=== PATIENT | male | born 1985 | race Caucasian/White ===

== ENCOUNTER 2018-07-25 08:33 | Day surgery (SDC) | payer OTHER ==
--- NOTE | 2018-07-23 13:14 | HP ---
DATE OF SURGERY: 07/25/2018 ANTICIPATED PROCEDURE: Cholecystectomy. HISTORY OF PRESENT ILLNESS: The patient has upper abdominal pain. Ultrasound positive. Seen and examined. Procedure discussed in detail and wished to proceed. PAST MEDICAL HISTORY: ALLERGIES: SHELLFISH. MEDICATIONS: None. PAST SURGICAL HISTORY: Left elbow. SOCIAL HISTORY: Half pack per day. ETOH occasional. FAMILY HISTORY: Negative. PHYSICAL EXAMINATION: VITAL SIGNS: Normal. CHEST: Clear. COR: Regular. ABDOMEN: No palpable organomegaly or mass. IMPRESSION: Symptomatic cholelithiasis. PLAN: Laparoscopic cholecystectomy.
[~2018-07-25 08:33] MED LIST: Lactated Ringers 1,000 ML IV ONE; Lactated Ringers 1,000 ML IV SCH; MEFOXIN 2 GM PREMIX** 2 GM/50 ML ML IV ONE; Sensorcaine 0.25% 10 ML ONE
[2018-07-25] MEDS ORDERED: BRIDION 200MG/2ML IV ONE (08:34)
[2018-07-25] MEDS ORDERED: Decadron 4 MG INJ IV ONE (08:34)
[2018-07-25] MEDS ORDERED: TORAdol 30 mg Injection IV ONE (08:34)
[2018-07-25] MEDS ORDERED: DIPRIVAN 200 MG/20 ML IV ONE (08:34)
[2018-07-25] MEDS ORDERED: Zofran 4 MG/2 ML VIAL IV ONE (08:34)
[2018-07-25] MEDS ORDERED: Versed 2 MG/2 ML Injection IV ONE (08:34)
[2018-07-25] MEDS ORDERED: Zemuron 100 MG/10 ML IV ONE (08:34)
[2018-07-25] MEDS ORDERED: SUBLIMAZE 250 MCG/5 ML IV ONE (08:34)
[2018-07-25] MEDS ORDERED: Zofran 4 MG/2 ML VIAL ONE (14:26)
[2018-07-25] MEDS ORDERED: MORPHINE SULFATE 10 MG/ML ONE (14:26)
--- NOTE | 2018-07-25 15:33 | OP ---
SURGERY DATE/TIME: 07/25/2018 1308 PREOPERATIVE DIAGNOSIS: Symptomatic cholelithiasis. POSTOPERATIVE DIAGNOSIS: Symptomatic cholelithiasis. PROCEDURE: Laparoscopic cholecystectomy. SURGEON: Dr. Lara. ANESTHESIA: General endotracheal tube. COMPLICATIONS: None. CONDITION: Stable. INDICATIONS: A patient with upper abdominal pain, ultrasound positive, seen and examined. Procedure discussed in detail. DESCRIPTION OF PROCEDURE AND FINDINGS: Taken to surgery. General anesthetic, routine prep and drape. Veress needle inserted. Opening pressure of 1, insufflating pressure 14. Four - 5's. Good visualization. Cystic artery defined. Cystic artery defined. Both structures triply clipped and transected. Clips noted across and well approximated. Gallbladder rolled out of gallbladder fossa. The gallbladder was packed with stones. A 10 port was placed in the epigastrium and gallbladder placed in a condom bag and it was removed. There were two small stones in the field that were picked up. Field totally clean and dry. CO2 exsufflated. Hole closure device used on the 10 port. Skin closed with 4-0 Vicryl and Steri-Strips. The patient tolerated the procedure satisfactorily.
[2018-07-25 15:48] VITALS: BP 121/83; PULSE 68; O2SAT 98
== END 2018-07-25 15:45 | disposition home or self-care (01) ==
LOC: SDC 08:33
PROVIDERS: ATTEND Surgery
DX: K80.10 Calculus of gallbladder with chronic cholecystitis without obstruction (principal)
CPT/HCPCS: J0694; J1100; J1885; J2250; J2270; J2405; J2704; J3010

== ENCOUNTER 2024-03-23 18:26 | Emergency (ER) | payer BC, OTHER ==
[2024-03-23 19:05] VITALS: TEMP 98.6; O2SAT 98
--- NOTE | 2024-03-23 19:30 | ERPHSYRPT ---
- History of Present Illness Source: patient Exam Limitations: no limitations Patient Subjective Stated Complaint: Pt c/o of blood coming from his right ear with no pain until he was just about here and then the whole right area of his head around the ear began to be very painful and then he dry-heeved Triage Nursing Assessment: Pt brought to the ER by a family member, hypertensive, denies pain at this time, pulses normal, skin n/w/d, off and on dizziness, doesn't appear to be in any distress Physician History: Patient has right ear bleeding. He said he started feeling fullness in his ear about 2 days ago. The patient then developed quite a bit of pain and said he felt like something was wet in his ear. It turned out to be blood. He says he is not noticing a ton of hearing loss. He has no fever or chills. Nothing seems to make the symptoms better or worse. He does not have any pain at this time.He has a history of tubes and chronic ear issues as well as decreased hearing secondary to multiple ear infections as a child. Allergies/Adverse Reactions: shellfish derived Allergy (Verified 03/23/24 19:05) Home Medications: No Reportable Medications [No Reported Medications] 07/04/18 [History] Hx Influenza Vaccination/Date Given: No Hx Pneumococcal Vaccination/Date Given: No Travel Risk - International Travel Have you traveled outside of the country in past 3 weeks: No - Emerging Infectious Disease Are you exhibiting symptoms associated with any current EIDs: No - Review of Systems Constitutional: No Symptoms Eyes: No Symptoms Ears, Nose, & Throat: Ear Discharge Respiratory: No Symptoms Cardiac: No Symptoms Musculoskeletal: No Symptoms Neurological: No Symptoms All Other Systems: Reviewed and Negative - Past Medical History Pertinent Past Medical History: Yes Neurological History: No Pertinent History ENT History: No Pertinent History Cardiac History: No Pertinent History Respiratory History: No Pertinent History Endocrine Medical History: No Pertinent History Musculoskeletal History: No Pertinent History GI Medical History: Gallbladder Disease History: No Pertinent History Psycho-Social History: No Pertinent History Male Reproductive Disorders: No Pertinent History - Past Surgical History Past Surgical History: Yes Neuro Surgical History: No Pertinent History Cardiac: No Pertinent History Respiratory: No Pertinent History Gastrointestinal: No Pertinent History Genitourinary: No Pertinent History Musculoskeletal: Other Male Surgical History: No Pertinent History Other Surgical History: L elbow and hand surgery - Social History Smoking Status: Current every day smoker How long have you smoked: vapes Exposure to second hand smoke: No Drug Use: none - Social Determinants of Health Will the patient participate in the screening: Yes Do you worry about a steady place to live?: No Do you have any problems with any of the following?: No known problems In the past 12 months,have you had to go without utilities?: No Transportation Issues: No Has anyone in your support network made you feel unsafe?: No Have you or anyone in your house had to go without enough: No - Nursing Vital Signs Nursing Vital Signs: Initial Vital Signs Temperature 98.6 F 03/23/24 18:58 Pulse Rate 70 03/23/24 18:58 Blood Pressure 149/97 03/23/24 18:58 O2 Sat by Pulse Oximetry 98 03/23/24 18:58 Pain Scale Pain Intensity 0 - Physical Exam General Appearance: no apparent distress Eye Exam: bilateral eye: normal inspection, PERRL, EOMI Ear Exam: right ear: bleeding, TM perforation, left ear: auricle normal, canal normal, TM normal, bilateral ear: other (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 I did not see any masses or anything that were bleeding or unusual. At this time I am going to put him on gentamicin ophthalmic eyedrops he does not require anything for pain. He is to follow-up with his primary care doctor. 03/23/24 19:29 Medical Desision Making - Risk of complications Minimal Risk: Minimal risk of morbidity - Departure Departure Disposition: Home Clinical Impression: Ruptured tympanic membrane Condition: Stable Critical Care Time: No Referrals: ALEXANDER MCGINNIS NP [Primary Care Provider] - Follow up/PCP as directed Instructions: Ruptured Eardrum (DC) Additional Instructions: Put the drops in your ear around 4 times a day for 5 days. Follow-up with your primary care doctor.
[2024-03-23 19:34] VITALS: BP 127/97; PULSE 73; RESP 19
[2024-03-23] MEDS ORDERED: GARAMYCIN 0.3% OPHTH SOL ONE (19:35)
[2024-03-23] MEDS: GARAMYCIN 0.3% OPHTH SOL OP ONE (19:37)
== END 2024-03-23 19:49 | disposition home or self-care (01) ==
LOC: ED 18:26
DX: H72.91 Unspecified perforation of tympanic membrane, right ear (principal); H92.21 Otorrhagia, right ear; Z72.0 Tobacco use
CPT/HCPCS: 99281; 99283; A9270-GY